=== PATIENT | female | born 1975 | race Caucasian/White ===

== ENCOUNTER 2017-06-02 07:53 | Inpatient (IN) | payer BC ==
[2017-06-02] MEDS: Dextrose 5%-Lactated Ringers 1,000 ML IV SCH ×2 (08:55→15:51)
[2017-06-02] MEDS ORDERED: Glycopyrrolate 0.2 MG/ML 2 ML SDV IVPUSH ONE (09:15)
[2017-06-02] MEDS ORDERED: fentaNYL 100 MCG/2 ML SDV ONE (10:27)
[2017-06-02] MEDS ORDERED: Propofol 200 MG/20 ML SDV ONE ×2 (10:27→11:51)
[2017-06-02] MEDS ORDERED: Midazolam 1 MG/ML 2 ML SDV ONE (10:27)
[2017-06-02] MEDS ORDERED: LORazepam 2 MG/ML MDV IVPUSH PRN (15:11)
[2017-06-02] MEDS ORDERED: LORazepam 0.5 MG Tab PO PRN (15:12)
[2017-06-02] MEDS ORDERED: Acetaminophen 325 MG Tab PO PRN (15:45)
[2017-06-03] MEDS: Zolpidem 5 MG Tab PO PRN ×2 (01:18→01:19)
[2017-06-03] MEDS: Dextrose 5%-Lactated Ringers 1,000 ML IV SCH ×2 (03:21→19:07)
[2017-06-03] MEDS ORDERED: Glycopyrrolate 0.2 MG/ML 5 ML MDV ONE (08:11)
[2017-06-03] MEDS ORDERED: Ondansetron 4 MG/2 ML SDV ONE (08:11)
[2017-06-03] MEDS ORDERED: Succinylcholine 200 MG/10 ML MDV ONE (08:11)
[2017-06-03] MEDS ORDERED: Dexamethasone 4 MG/ML SDV ONE (08:11)
[2017-06-03] MEDS ORDERED: Neostigmine Methylsulfate 1 MG/ML 5 ML Syringe ONE (08:11)
[2017-06-03] MEDS ORDERED: Rocuronium 50 MG/5 ML Vial ONE (08:11)
[2017-06-03] MEDS ORDERED: Propofol 200 MG/20 ML SDV ONE (08:11)
[2017-06-03] MEDS ORDERED: Sodium Chloride 0.9% 10 ML ONE ×2 (08:14→13:30)
[2017-06-03] MEDS ORDERED: Meropenem 500 MG SDV ONE (08:40)
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
--- NOTE | 2017-06-03 08:55 | PCM.HP ---
H&P History of Present Illness - General Date of Service: 06/03/17 Admit Problem/Dx: Admission Diagnosis/Problem Admission Diagnosis/Problem Mass of colon Source of Information: Patient History Limitations: Reports: No Limitations - History of Present Illness Initial Comments - Free Text/Narative: Regine was admitted after she had a colonoscopy for an abnormal frequent drop in ferritin. Colonoscopy revealed a mass in her cecum. She is prepped for a Right Colectomy today Onset of Symptoms: Reports: Gradual - Related Data Allergies/Adverse Reactions: Allergies Allergy/AdvReac Type Severity Reaction Status Date / Time ciprofloxacin Allergy Severe Difficulty Verified 06/02/17 08:46 Breathing iron [From Venofer] Allergy Severe Difficulty Verified 06/02/17 08:46 Breathing hydromorphone [From Dilaudid] AdvReac Nausea and Verified 06/02/17 08:46 Vomiting Home Medications: Home Meds Cyanocobalamin (Vitamin B-12) [Cyanocobalamin Injection] 1 ml IM Q14D 05/15/15 [ History] Cyanocobalamin (Vitamin B-12) [Vitamin B-12] 1,000 mcg SL DAILY 05/15/15 [ History] Iron,Carbonyl/Ascorbic Acid [Vitron-C Tablet] 1 tab PO BID 05/15/15 [History] Pediatric Multivit Comb No.28 [Child Multivitamins] 1 tab PO BID 05/15/15 [ History] Vitamin B Complex 100 NO.2 [Balanced B-100] 100 mg PO DAILY 07/22/16 [History] Zolpidem [Ambien] 5 mg PO BEDTIME 08/06/16 [History] Ergocalciferol (Vitamin D2) [Vitamin D2] 50,000 units PO ASDIRECTED 05/31/17 [ History] Past Medical History HEENT History: Reports: Impaired Vision Other HEENT History: wears contacts Cardiovascular History: Reports: Other (See Below) Other Cardiovascular History: tachycardia after picc line Gastrointestinal History: Reports: Chronic Constipation, Colon Polyp, Hemorrhoids SHOE REPAIRER History: Reports: Polycystic Ovaries, Other OB/BYN History: "ovarian drilling" Musculoskeletal History: Reports: Back Pain, Chronic Other Musculoskeletal History: L1 Fracture Neurological History: Reports: Headaches, Chronic, Migraines Psychiatric History: Reports: Anxiety, Bipolar, Depression, Panic Attack, PTSD Endocrine/Metabolic History: Reports: Obesity/BMI 30+ Hematologic History: Reports: Anemia, B12 Deficiency, Blood Transfusion(s), Iron Deficiency Other Hematologic History: arr with anemia - Infectious Disease History Infectious Disease History: Reports: Chicken Pox - Past Surgical History HEENT Surgical History: Reports: Detached Retina Cardiovascular Surgical History: Reports: None GI Surgical History: Reports: Bariatric Procedure, Cholecystectomy, Colonoscopy , EGD, Hernia, Abdominal, Lysis of Adhesions Endocrine Surgical History: Reports: None Dermatological Surgical History: Reports: None Social & Family History - Family History Family Medical History: Noncontributory Cardiac: Reports: Hypertension Endocrine/Metabolic: Reports: Diabetes, type II Oncologic: Reports: Lung, Pancreatic, Thyroid - Tobacco Use Smoking Status *Q: Never Smoker Second Hand Smoke Exposure: No - Caffeine Use Caffeine Use: Reports: Soda, Tea - Recreational Drug Use Recreational Drug Use: No H&P Review of Systems - Review of Systems: Review Of Systems: See Below General: Reports: Fatigue HEENT: Reports: No Symptoms Pulmonary: Reports: No Symptoms Cardiovascular: Reports: No Symptoms Gastrointestinal: Reports: Abdominal Pain (in her right upper trocar site and right lower trocar site. ), Bloody Stool Genitourinary: Reports: No Symptoms Musculoskeletal: Reports: No Symptoms Skin: Reports: No Symptoms Psychiatric: Reports: No Symptoms Neurological: Reports: No Symptoms Hematologic/Lymphatic: Reports: Anemia Immunologic: Reports: No Symptoms Exam - Exam Exam: See Below - Vital Signs Vital Signs: Last Vital Signs Temp 98.1 F 06/03/17 03:00 Pulse 67 06/03/17 03:00 Resp 12 06/03/17 03:00 BP 112/58 L 06/03/17 03:00 Pulse Ox 99 06/03/17 03:00 Weight: 160 lb - Exam Quality Assessment: DVT Prophylaxis General: Alert, Oriented, Cooperative HEENT: PERRLA, Conjunctiva Clear Neck: Supple, Trachea Midline Lungs: Clear to Auscultation, Normal Respiratory Effort Cardiovascular: Regular Rate, Regular Rhythm GI/Abdominal Exam: Normal Bowel Sounds, Non-Tender (Female) Exam: Deferred Rectal (Female) Exam: Deferred Back Exam: Normal Inspection Extremities: Normal Inspection, Normal Range of Motion, No Pedal Edema Skin: Warm, Dry, Intact Neurological: Cranial Nerves Intact, Reflexes Equal Bilateral Neuro Extensive - Mental Status: Alert, Oriented x3, Normal Mood/Affect, Memory Intact, Other (emotional which is to be expected.) Neuro Extensive - Motor, Sensory, Reflexes: CN II-XII Intact Psychiatric: Alert - Patient Data Lab Results Last 24 hrs: Laboratory Results - last 24 hr 06/02/17 06/02/17 06/02/17 Range/Units 13:35 13:35 13:35 WBC 4.0 L (4.5-11.0) K/uL RBC 3.95 (3.30-5.50) M/uL Hgb 11.6 L (12.0-15.0) g/dL Hct 35.3 L (36.0-48.0) % MCV 89 (80-98) fL MCH 29 (27-31) pg MCHC 33 (32-36) % Plt Count 278 (150-400) K/uL Sodium 141 (140-148) mmol/L Potassium 3.5 L (3.6-5.2) mmol/L Chloride 108 (100-108) mmol/L Carbon Dioxide 25 (21-32) mmol/L Anion Gap 11.5 (5.0-14.0) mmol/L BUN 6 L (7-18) mg/dL Creatinine 0.6 (0.6-1.0) mg/dL Est Cr Clr Drug Dosing 98.58 mL/min Estimated GFR (MDRD) > 60 (>60) Glucose 96 (74-106) mg/dL Calcium 8.2 L (8.5-10.1) mg/dL Phosphorus 2.6 (2.5-4.9) mg/dL Magnesium 1.9 (1.8-2.4) mg/dL Ferritin (8-388) ng/ml Total Bilirubin 0.4 (0.2-1.0) mg/dL AST 17 (15-37) U/L ALT 20 (12-78) U/L Alkaline Phosphatase 57 (46-116) U/L Total Protein 6.8 (6.4-8.2) g/dL Albumin 3.4 (3.4-5.0) g/dL Globulin 3.4 (2.3-3.5) g/dL Albumin/Globulin Ratio 1.0 L (1.2-2.2) Vitamin B12 (193-986) pg/ml Blood Type Gel Antibody Screen 06/02/17 06/02/17 Range/Units 13:35 13:35 WBC (4.5-11.0) K/uL RBC (3.30-5.50) M/uL Hgb (12.0-15.0) g/dL Hct (36.0-48.0) % MCV (80-98) fL MCH (27-31) pg MCHC (32-36) % Plt Count (150-400) K/uL Sodium (140-148) mmol/L Potassium (3.6-5.2) mmol/L Chloride (100-108) mmol/L Carbon Dioxide (21-32) mmol/L Anion Gap (5.0-14.0) mmol/L BUN (7-18) mg/dL Creatinine (0.6-1.0) mg/dL Est Cr Clr Drug Dosing mL/min Estimated GFR (MDRD) (>60) Glucose (74-106) mg/dL Calcium (8.5-10.1) mg/dL Phosphorus (2.5-4.9) mg/dL Magnesium (1.8-2.4) mg/dL Ferritin 46 (8-388) ng/ml Total Bilirubin (0.2-1.0) mg/dL AST (15-37) U/L ALT (12-78) U/L Alkaline Phosphatase (46-116) U/L Total Protein (6.4-8.2) g/dL Albumin (3.4-5.0) g/dL Globulin (2.3-3.5) g/dL Albumin/Globulin Ratio (1.2-2.2) Vitamin B12 268 (193-986) pg/ml Blood Type A NEGATIVE Gel Antibody Screen Negative Result Diagrams: 06/02/17 13:35 06/02/17 13:35 *Q Meaningful Use (ADM) - VTE *Q VTE Criteria *Q: - Stroke *Q Stroke Criteria *Q: - AMI *Q AMI Criteria *Q: Problem List Initiated/Reviewed/Updated: Yes Orders Last 24hrs: Active Orders 24 hr Category Date Time Status Patient Status [ADT] Routine ADT 06/02/17 15:40 Active Ambulate [RC] QID Care 06/02/17 16:33 Active Intake and Output [RC] QSHIFT Care 06/02/17 16:51 Active Oxygen Therapy [RC] PRN Care 06/02/17 16:33 Active RT Incentive Spirometry [RC] ASDIRECTED Care 06/02/17 16:57 Active Up to Chair [RC] QID Care 06/02/17 16:33 Active VTE/DVT Education [RC] Per Unit Routine Care 06/02/17 16:33 Active Verify Patient Consent Obtain [RC] ASDIRECTED Care 06/02/17 16:53 Active Vital Signs [RC] Q4H Care 06/02/17 16:33 Active Clear Liquid Diet [DIET] Diet 06/02/17 Dinner Active Nothing per Oral After Midnight Diet [DIET] Diet 06/03/17 Breakfast Active CEA [REF] Routine Lab 06/02/17 13:35 Received FREDDIE TEST [RM] Routine Lab 06/02/17 11:44 Received Acetaminophen [Tylenol] Med 06/02/17 15:45 Active 650 mg PO Q4H PRN Dextrose 5%-Lactated Ringers 1,000 ml Med 06/02/17 08:30 Active IV ASDIRECTED LORazepam [Ativan] Med 06/02/17 15:11 Active 0.5 - 1 mg IVPUSH Q3H PRN LORazepam [Ativan] Med 06/02/17 15:12 Active 0.5 - 1 mg PO Q3H PRN Naloxone [Narcan] Med 06/03/17 09:30 Active 0.1 mg IVPUSH Q5M PRN Zolpidem [Ambien] Med 06/02/17 20:20 Active 10 mg PO BEDTIME PRN cefOXitin [Mefoxin] 2 gm Med 06/03/17 11:00 Active Sodium Chloride 0.9% [Normal Saline] 50 ml IV ONCALL fentaNYL [Sublimaze] 2,500 mcg Med 06/03/17 09:30 Active Sodium Chloride 0.9% [Normal Saline] 200 ml EPIDUR TITRATE SCD [Sequential Compression Device] [OM.PC] Routine Oth 06/02/17 22:22 Ordered Resuscitation Status Routine Resus Stat 06/02/17 16:33 Ordered Medication Orders Acetaminophen (Tylenol) 650 mg PO Q4H PRN PRN Reason: Headache Last Admin: 06/02/17 15:50 Dose: 650 mg Dextrose/Lactated Ringer's (Dextrose 5%-Lactated Ringers) 1,000 mls @ 100 mls/ hr IV ASDIRECTED OTF Last Admin: 06/03/17 03:21 Dose: 100 mls/hr Infusion: 06/03/17 01:51 Dose: 100 mls/hr Admin: 06/02/17 15:51 Dose: 100 mls/hr Infusion: 06/02/17 15:51 Dose: 100 mls/hr Admin: 06/02/17 08:55 Dose: 100 mls/hr Cefoxitin Sodium 2 gm/ Sodium (Chloride) 50 mls @ 100 mls/hr IV ONCALL ONE Stop: 06/03/17 11:29 Last Admin: 06/03/17 08:28 Dose: 100 mls/hr Fentanyl 2,500 mcg/ Sodium (Chloride) 250 mls @ 0 mls/hr EPIDUR TITRATE OTF; Titrate PRN Reason: Protocol Lorazepam (Ativan) 0.5 - 1 mg IVPUSH Q3H PRN PRN Reason: Anxiety Last Admin: 06/03/17 08:27 Dose: 1 mg Lorazepam (Ativan) 0.5 - 1 mg PO Q3H PRN PRN Reason: Anxiety Naloxone HCl (Narcan) 0.1 mg IVPUSH Q5M PRN PRN Reason: RESP RATE LESS THAN 6/MINUTE Zolpidem Tartrate (Ambien) 10 mg PO BEDTIME PRN PRN Reason: Insomnia Last Admin: 06/03/17 01:19 Dose: 5 mg Assessment/Plan Comment:: Assessment: Cecal Mass Plan: Orders to be written post operatively Xuan Edwards 06/03/17
[2017-06-03] MEDS ORDERED: Naloxone 0.4 MG/ML SDV IVPUSH PRN (09:30)
[2017-06-03] MEDS ORDERED: cefOXitin 2 GM in Sodium Chloride 0.9% 50 ML IV ONE (11:00)
[2017-06-03] MEDS ORDERED: Scopolamine 1.5 MG Transdermal Patch ONE (14:32)
[2017-06-03] MEDS ORDERED: Naloxone 0.4 MG/ML SDV IV PRN (15:17)
[2017-06-03] MEDS ORDERED: diphenhydrAMINE 50 MG/ML SDV IVPUSH PRN (15:17)
[2017-06-03] MEDS ORDERED: Meperidine PF 75 MG/ML Syringe IM PRN (15:18)
[2017-06-03] MEDS: fentaNYL 2,500 MCG in Sodium Chloride 0.9% 200 ML EPIDUR SCH (15:30)
[2017-06-03] MEDS: diphenhydrAMINE 50 MG/ML SDV IVPUSH PRN ×2 (15:32→21:48)
[2017-06-03] MEDS: Pantoprazole 40 MG Vial IV SCH (15:39)
[2017-06-03] MEDS: cefOXitin 2 GM in Sodium Chloride 0.9% 50 ML IV SCH ×2 (15:40→21:48)
[2017-06-03] MEDS: hydrOXYzine HCl 25 MG Tab PO PRN (17:19)
[2017-06-03] MEDS: Ondansetron 4 MG/2 ML SDV IVPUSH PRN (17:19)
[2017-06-03] MEDS: Acetaminophen 1,000 MG in Premix Bag 1 BAG IV SCH (21:20)
[2017-06-04] MEDS: Dextrose 5%-Lactated Ringers 1,000 ML IV SCH ×4 (00:30→21:57)
[2017-06-04] MEDS ORDERED: Lactated Ringers 500 ML IV SCH ×2 (02:30→07:00)
[2017-06-04] MEDS: hydrOXYzine HCl 25 MG Tab PO PRN (03:57)
[2017-06-04] MEDS: Pantoprazole 40 MG Vial IV SCH ×2 (04:00→16:42)
[2017-06-04] MEDS: Acetaminophen 1,000 MG in Premix Bag 1 BAG IV SCH ×2 (04:05→09:42)
[2017-06-04] MEDS: cefOXitin 2 GM in Sodium Chloride 0.9% 50 ML IV SCH ×2 (04:26→09:42)
[2017-06-04] MEDS ORDERED: Enoxaparin 40 MG/0.4 ML Syringe SUBCUT SCH (09:00)
[2017-06-04] MEDS: fentaNYL 2,500 MCG in Sodium Chloride 0.9% 200 ML EPIDUR SCH (09:20)
[2017-06-04] MEDS: Sennosides 8.6 MG Tab PO SCH (09:43)
[2017-06-04] MEDS: traMADol 50 MG Tab PO SCH ×3 (09:43→21:54)
[2017-06-04] MEDS: Bisacodyl 5 MG Tab PO SCH ×2 (09:43→21:54)
[2017-06-04] MEDS: Ibuprofen 600 MG Tab PO SCH ×3 (09:43→21:55)
[2017-06-04] MEDS: Acetaminophen 325 MG Tab PO SCH ×2 (16:42→21:54)
[2017-06-04] MEDS: SCOPOLAMINE PATCH CHECK TOP SCH (16:43)
[2017-06-04] MEDS: diphenhydrAMINE 50 MG/ML SDV IVPUSH PRN (18:33)
[2017-06-04] MEDS: Ondansetron 4 MG/2 ML SDV IVPUSH PRN (22:01)
[2017-06-05] MEDS: Pantoprazole 40 MG Vial IV SCH ×2 (04:08→16:04)
[2017-06-05] MEDS: Acetaminophen 325 MG Tab PO SCH ×5 (04:08→21:08)
[2017-06-05] MEDS: Ondansetron 4 MG/2 ML SDV IVPUSH PRN ×2 (04:17→10:32)
[2017-06-05] MEDS: diphenhydrAMINE 50 MG/ML SDV IVPUSH PRN (04:35)
[2017-06-05] MEDS: fentaNYL 2,500 MCG in Sodium Chloride 0.9% 200 ML EPIDUR SCH (04:47)
[2017-06-05] MEDS ORDERED: Lactated Ringers 500 ML IV SCH (05:00)
[2017-06-05] MEDS: Ibuprofen 600 MG Tab PO SCH ×4 (05:03→21:07)
[2017-06-05] MEDS: traMADol 50 MG Tab PO SCH ×4 (05:08→21:14)
[2017-06-05] MEDS ORDERED: Bupivacaine 0.5% 50 ML MDV ONE (07:21)
[2017-06-05] MEDS ORDERED: Lidocaine 1% with EPINEPHrine 1:100,000 50 ML MDV ONE (07:21)
[2017-06-05] MEDS ORDERED: Meropenem 500 MG SDV ONE (07:21)
[2017-06-05] MEDS ORDERED: Propofol 200 MG/20 ML SDV ONE (07:55)
[2017-06-05] MEDS ORDERED: Midazolam 1 MG/ML 2 ML SDV ONE (07:55)
[2017-06-05] MEDS ORDERED: Sodium Chloride 0.9% 500 ML ONE (07:56)
[2017-06-05] MEDS ORDERED: Ondansetron 4 MG/2 ML SDV ONE (07:58)
[2017-06-05] MEDS ORDERED: Metoclopramide 10 MG/2 ML SDV IVPUSH ONE (11:02)
[2017-06-05] MEDS: SCOPOLAMINE PATCH CHECK TOP SCH (11:04)
[2017-06-05] MEDS: Bisacodyl 5 MG Tab PO SCH ×2 (11:20→21:10)
[2017-06-05] MEDS: Sennosides 8.6 MG Tab PO SCH (11:21)
[2017-06-05] MEDS ORDERED: Meperidine PF 25 MG/ML Syringe IVPUSH PRN (13:12)
[2017-06-05] MEDS: Metoclopramide 10 MG/2 ML SDV IVPUSH SCH ×2 (16:04→21:10)
[2017-06-05] MEDS: Dextrose 5%-Lactated Ringers 1,000 ML IV SCH ×2 (18:10→18:36)
[2017-06-06] MEDS: Dextrose 5%-Lactated Ringers 1,000 ML IV SCH (04:10)
[2017-06-06] MEDS: Metoclopramide 10 MG/2 ML SDV IVPUSH SCH (04:12)
[2017-06-06] MEDS: Pantoprazole 40 MG Vial IV SCH (04:12)
[2017-06-06] MEDS: Acetaminophen 325 MG Tab PO SCH ×4 (04:18→21:44)
[2017-06-06] MEDS: traMADol 50 MG Tab PO SCH ×4 (05:40→21:43)
[2017-06-06] MEDS: Ibuprofen 600 MG Tab PO SCH ×4 (05:41→21:42)
--- NOTE | 2017-06-06 08:27 | PN ---
DATE OF SERVICE: 06/04/2017 SUBJECTIVE: Regine is postop day 1. She is sitting up in the chair. Vital signs have been stable. Her pain has been controlled, temp max 100.6. Urinary output has been marginal. She was given a bolus of lactated Ringer's last evening and it was repeated again this morning. NICKI has put out 275 mL of a light red drainage. Remainder of review of systems negative for any pertinent positives and negatives. OBJECTIVE: GENERAL: Regine Pacheco is a pleasant 42-year-old female. VITAL SIGNS: TPR is 100.6, 70, 18, blood pressure 93/49. O2 sats by pulse oximetry is 94%. HEENT: Negative. NECK: Supple. HEART: Regular rate and rhythm. LUNGS: Clear. ABDOMEN: Dressings are dry and intact. Abdominal binder is on. EXTREMITIES: Without peripheral edema. 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 Surgeon, Jairo Zimmerman MD. PLAN: 1. Orders were previously written. She is to decrease IV at noon to 100 mL per hour if oral intake is adequate. Check CBC and CMP in a.m. She is already scheduled for delayed primary closure of open abdominal incision, IV sedation, Jairo Zimmerman MD on 06/05/2017, to be n.p.o. after midnight. 2. Good pulmonary toilet encouraged. 3. We will evaluate p.r.n. or in a.m. Xuan Hinds PA-C /[id number]
[2017-06-06] MEDS ORDERED: Scopolamine 1.5 MG Transdermal Patch TOP SCH (09:00)
--- NOTE | 2017-06-06 09:42 | PN ---
DATE OF SERVICE: 06/06/2017 SUBJECTIVE: Regine had a delayed primary closure yesterday. She had several bowel movements during in the night. Vital signs have been stable. Her temp max was 98.9. Oral intake was 1,050 and urine output was 1,300. NICKI drain #1 has put out 40 mL of a light pink serous drainage and midline NICKI drain has put out 7 mL. REVIEW OF SYSTEMS: Remainder of review of systems negative for any pertinent positives and negatives. OBJECTIVE: GENERAL: Regine Pacheco is a pleasant 42-year-old female. VITAL SIGNS: TPR is 98.8, 68, 16, blood pressure 93/46. HEENT: Negative. NECK: Supple. HEART: Regular rate and rhythm. LUNGS: Clear. ABDOMEN: Dressings dry and intact. Aquacel is on. NICKI drains x2 intact. EXTREMITIES: Without peripheral edema. ASSESSMENT: 1. Delayed primary closure for open abdominal incision on 06/05/2017. 2. 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 Date of surgery is 06/03/2017. Jairo Zimmerman M.D. 3. Upper GI with biopsies and colonoscopy with biopsy of cecal tumor, injection of Sheila ink in submucosal adjacent to the cecal mass. 4. Iron deficiency anemia associated with normal upper GI. 5. Gastric bypass surgery and possible carcinoma cecum and smaller adjacent polyp, date of procedure 06/02/2017. PLAN: 1. Discontinue Entereg. 2. Reglan 10 mg p.o. q.6 hours p.r.n. nausea. 3. Discontinue IV Reglan. 4. Good pulmonary toilet encouraged. 5. Dressing off, may shower but leaving Aquacel on. 6. We will re-evaluate p.r.n. or in a.m. 7. Plan to discharge in a.m. Xuan Hinds PA-C /[id number]
[2017-06-06] MEDS: SCOPOLAMINE PATCH CHECK TOP SCH (09:52)
[2017-06-06] MEDS: Bisacodyl 5 MG Tab PO SCH ×2 (09:53→20:27)
[2017-06-06] MEDS: Sennosides 8.6 MG Tab PO SCH (09:53)
--- NOTE | 2017-06-06 10:09 | PN ---
DATE OF SERVICE: 06/05/2017 The patient has been afebrile with stable vital signs. Pain control has been satisfactory with the epidural catheter, and she was started on Tylenol, ibuprofen, and tramadol. Her oral intake was fairly good yesterday. Plan will be to proceed with a delayed primary closure today and I will discontinue the epidural catheter. given the manipulation of the epidural space and probably start a Step-4 gastric bypass diet. We will remove the drain within the peritoneal cavity and she will likely have a NICKI drain in the subcutaneous tissue postoperatively. Jairo Zimmerman MD /[id number]
--- NOTE | 2017-06-06 12:18 | OR ---
DATE OF PROCEDURE: 06/05/2017 PREOPERATIVE DIAGNOSIS: Open abdominal incision. POSTOPERATIVE DIAGNOSIS: Open abdominal incision. OPERATIVE PROCEDURE: Delayed primary closure of open abdominal incision. ANESTHESIA: IV sedation. INDICATION FOR PROCEDURE: This is a 42-year-old status post extended right colectomy 48 hours ago with skin and subcutaneous tissue, was felt to be high risk for wound infection, able to close primarily, therefore the wound was packed open for a planned delayed primary closure at this time. Potential risks of the procedure including bleeding and infection were reviewed, and the patient wishes to proceed. DETAILS OF PROCEDURE: The patient was taken to the operating room, placed in a supine position, sitting up somewhat to minimize aspiration risk. The patient received IV sedation and the dressing was taken down and the incision was inspected, it was found to be clean. It was then prepped and draped, anesthetized with 1% lidocaine mixed with Marcaine and irrigated with meropenem-containing saline solution. A 10-Telugu round Joaquin-Gutierrez drain was then placed through the stab wound inferior to the incision and the incision was then closed with 3-0 and 4-0 Vicryl stitch deep and channing for the skin. The drain was fixed with 3-0 Vicryl stitch as well. The patient was taken to the recovery room in satisfactory condition. Jairo Zimmerman MD /[id number]
[2017-06-06] MEDS: Metoclopramide 10 MG Tab PO PRN ×2 (12:41→20:30)
[2017-06-06] MEDS: Pantoprazole 40 MG Tab.CR PO SCH (15:40)
[2017-06-07] MEDS: Acetaminophen 325 MG Tab PO SCH ×2 (03:01→10:31)
[2017-06-07] MEDS: hydrOXYzine HCl 100 MG/2 ML SDV IM PRN (06:00)
[2017-06-07] MEDS ORDERED: Lidocaine 2% Viscous Solution 15 ML Cup PO PRN (06:54)
[2017-06-07] MEDS ORDERED: Ondansetron 4 MG Tab.DIS PO PRN (06:59)
[2017-06-07] MEDS: traMADol 50 MG Tab PO SCH ×2 (07:09→10:31)
[2017-06-07] MEDS: Ibuprofen 600 MG Tab PO SCH (07:10)
--- NOTE | 2017-06-07 07:56 | PN ---
DATE OF SERVICE: 06/07/2017 SUBJECTIVE: Regine reports severe epigastric pain. Mouth is dry, and she states that nothing tastes good. When she tries to eat, she gets very nauseated. Oral intake was 570 yesterday. Urine output was 400. Breakfast 0%, lunch 25%, and dinner nothing was recorded. Two bowel movements and besides the 400 mLs, she had 2 voids. REVIEW OF SYSTEMS: Remainder of review of systems negative for any pertinent positives and negatives. OBJECTIVE: GENERAL: Regine Pacheco is a pleasant 42-year-old female. VITAL SIGNS: TPR is 98.7, 75, 16, and blood pressure 114/56. HEENT: Negative. NECK: Supple. HEART: Regular rate and rhythm. LUNGS: Clear. ABDOMEN: Dressing dry and intact. Abdominal binder is on. NICKI drain put out 40 mL. Midline NICKI put out 7 mL of a light pink serous drainage. EXTREMITIES: SCDs are on. ASSESSMENT: 1. New midepigastric abdominal pain. 2. Delayed primary closure for open abdominal incision on 06/05/2017. 3. 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 Date of surgery, 06/03/2017; Jairo Zimmerman MD. 4. Upper GI with biopsies and colonoscopy with biopsy of cecal tumor, injection of Sheila ink to submucosa adjacent to the cecal mass. 5. Iron deficiency anemia associated with normal upper GI. 6. Status post Taco-en-Y gastric bypass surgery. PLAN: 1. Discontinue scopolamine patch. 2. Discontinue Reglan due to extensive mouth dryness. 3. Rx Zofran ODT 4 mg q.4 hours p.r.n. nausea. 4. Discontinue Motrin. 5. Viscous lidocaine 15 to 30 mL every 2 hours p.r.n. burning in esophagus. 6. Good pulmonary toilet encouraged. 7. We will evaluate p.r.n. or in a.m. Xuan Hinds PA-C /[id number]
[2017-06-07] MEDS: Pantoprazole 40 MG Tab.CR PO SCH (08:00)
[2017-06-07] MEDS: Sennosides 8.6 MG Tab PO SCH (10:27)
[2017-06-07] MEDS: Bisacodyl 5 MG Tab PO SCH (10:27)
[2017-06-07] MEDS: Metoclopramide 10 MG/2 ML SDV IVPUSH SCH ×2 (14:19→20:10)
[2017-06-07] MEDS: Dextrose 5%-Lactated Ringers 1,000 ML IV SCH ×2 (14:20→22:41)
--- NOTE | 2017-06-07 14:21 | CR ---
Abdomen 2V AP Flat Upright INDICATION: nausea and vomiting COMPARISON: Nothing recent. FINDINGS: 3 views. There is free air under the right hemidiaphragm or possibly a small amount under the left hemidiaphra gm on the upright view. Multiple dilated air-filled loops of small bowel with associated air-fluid levels throughout the abdo men. Surgical change in the abdomen. Surgical drain and skin channing. IMPRESSION: 1. Free intraperitoneal air. Given time from surgery, air leak is suspected. 2. Partial small bowel obstruction. Again, ileus also possible though degree of small bowel dilatatio n is concerning. Discussed with Xuan Hinds PA-C on 06/07/2017 at [address]10 hours. Plan is for CT follow-up.
[2017-06-07] MEDS ORDERED: Iopamidol 612 MG/ML 100 ML Bottle IV PRN (14:56)
[2017-06-07] MEDS ORDERED: Sodium Chloride 0.9% 100 ML IV SCH (15:00)
[2017-06-07] MEDS ORDERED: HYDROmorphone 1 MG/ML Syringe IVPUSH PRN (15:23)
--- NOTE | 2017-06-07 15:25 | CT ---
Abdomen Pelvis w Cont INDICATION: Suspect bowel obstruction TECHNIQUE: CT images of the abdomen and pelvis performed. Coronal reformatted images obtained. IV contrast only. DLP: 1098 mGycm COMPARISON: 07/15/2016 FINDINGS: Moderate amount of free air under the right hemidiaphragm. Tiny amount free air under th e left hemidiaphragm. Small bilateral pleural effusions, left greater than right. Gastric bypass surg mickey. Excluded stomach is fluid-filled but not significantly dilated. Small gastric pouch not excluded nor is the jejunal loop dilated proximally; however, multiple loops of dilated small bowel with asso ciated air-fluid levels throughout the abdomen. Anastomotic changes at the distal jejunal loop throu ghout with minimal wall thickening but no signs of obstruction at this point. Patient is near total colectomy. Remaining rectosigmoid colon fluid-filled and mildly dilated. Scattered ascites fluid in a ll 4 quadrants. No evidence of abscess formation. Fatty infiltration liver. Spleen, pancreas, adrenal glands, and kidneys unremarkable. Skin channing anterior abdominal wall midline. IMPRESSION: 1. Free air and ascites. This may be postoperative in nature, though leak not excluded. 2. Small bowel ileus versus obstruction. A discrete obstructing point is not seen. 3. Gastric bypass surgery. No distention at the proximal anastomoses.
[2017-06-07] MEDS: Ondansetron 4 MG/2 ML SDV IVPUSH PRN (16:25)
[2017-06-07] MEDS: Pantoprazole 40 MG Vial IVPUSH SCH (16:25)
[2017-06-07] MEDS: Meperidine PF 25 MG/ML Syringe IVPUSH PRN (21:32)
[2017-06-08] MEDS: hydrOXYzine HCl 100 MG/2 ML SDV IM PRN (02:00)
[2017-06-08] MEDS: Meperidine PF 25 MG/ML Syringe IVPUSH PRN ×2 (02:04→04:57)
[2017-06-08] MEDS: Ondansetron 4 MG/2 ML SDV IVPUSH PRN ×2 (02:07→14:34)
[2017-06-08] MEDS: Metoclopramide 10 MG/2 ML SDV IVPUSH SCH ×4 (02:09→20:24)
[2017-06-08] MEDS ORDERED: Naloxone 0.4 MG/ML SDV IV PRN (06:46)
[2017-06-08] MEDS ORDERED: Meperidine 300 MG/30 ML PCA Vial IV PRN (06:46)
[2017-06-08] MEDS: Pantoprazole 40 MG Vial IVPUSH SCH ×2 (08:19→15:39)
[2017-06-08] MEDS ORDERED: Furosemide 20 MG/2 ML VIAL IVPUSH ONE (08:30)
--- NOTE | 2017-06-08 09:12 | PN ---
DATE OF SERVICE: 06/08/2017 SUBJECTIVE: Regine developed an ileus yesterday. She did have 2 bowel movements in the past 12 hours. She has been n.p.o. Temp max of 99.9. REVIEW OF SYSTEMS: Remainder of review of systems negative for any pertinent positives and negatives. OBJECTIVE: GENERAL: Regine Pacheco is a 42-year-old female. VITAL SIGNS: TPR is 99.9, 82, 18, and blood pressure 110/60. HEENT: Negative. NECK: Supple. HEART: Regular rate and rhythm. LUNGS: Clear. ABDOMEN: Negative. Less distended. Incision looks good. EXTREMITIES: Revealed peripheral edema. ASSESSMENT: 1. Postoperative ileus. 2. Delayed primary closure for open incision on 06/05/2017. 3. 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 Date of surgery, 06/03/2017; Jairo Zimmerman MD. 4. Upper GI with biopsies and colonoscopy with biopsies of cecal tumor, injection of Sheila ink to submucosa adjacent to the cecal mass. 5. Iron deficiency anemia associated with normal upper GI. 6. Status post Taco-en-Y gastric bypass surgery. PLAN: 1. Check CBC, CMP, mag, phos, and ferritin. 2. Restart peripheral IV. 3. Decrease IV rate of D5LR to 100 mL per hour. 4. Lasix 10 mg IV. 5. Fentanyl patch 12 mcg, replace every 72 hours. 6. Start Demerol DIRECTOR OF FLIGHT OPERATIONS. 7. We will evaluate p.r.n. or in a.m. Xuan Hinds PA-C /[id number]
--- NOTE | 2017-06-08 09:15 | CR ---
Abdomen 2V AP Flat Upright INDICATION: small bowel obs COMPARISON: 06/07/2017 FINDINGS: 2 views. Slight decrease in free air under the right hemidiaphragm. Slight increase in small bowel distention and associated air-fluid levels, consistent with continuing small bowel obstruction. Excreted IV contrast in the urinary bladder. Skin channing and surgical drain remain in place. Small l eft pleural effusion.
[2017-06-08] MEDS: fentaNYL 12 MCG/HR Transdermal Patch TRDERM SCH (10:11)
[2017-06-08] MEDS: FENTANYL PATCH CHECK TOP SCH ×2 (10:12→22:24)
[2017-06-08] MEDS: Nystatin Susp 100,000 Unit/ML 5 ML UD Cup PO SCH ×3 (13:43→22:23)
[2017-06-08] MEDS: Dextrose 5%-Lactated Ringers 1,000 ML IV SCH (17:30)
[2017-06-09] MEDS: Metoclopramide 10 MG/2 ML SDV IVPUSH SCH ×4 (02:11→19:34)
[2017-06-09] MEDS: Dextrose 5%-Lactated Ringers 1,000 ML IV SCH ×2 (03:34→23:22)
[2017-06-09] MEDS: Nystatin Susp 100,000 Unit/ML 5 ML UD Cup PO SCH ×4 (05:58→21:39)
[2017-06-09] MEDS ORDERED: Potassium Phosphates 3 mMole/ML 5 ML SDV IV ONE (06:00)
[2017-06-09] MEDS ORDERED: Potassium Phosphates 30 MMOLE in Sodium Chloride 0.9% 500 ML IV SCH (06:00)
[2017-06-09] MEDS: Acetaminophen 325 MG Tab PO PRN ×2 (07:46→19:33)
[2017-06-09] MEDS ORDERED: Ketorolac 60 MG/2 ML SDV IM ONE (08:00)
--- NOTE | 2017-06-09 08:18 | PN ---
DATE OF SERVICE: 06/09/2017 SUBJECTIVE: Regine did have some clear liquid yesterday for a total of 520 mL with total of 3 bowel movements, less nausea and she is having less pain with exception of headache. Temperature max of 100.6. She is up ambulating. REVIEW OF SYSTEMS: Remainder of review of systems negative for any pertinent positives and negatives. OBJECTIVE: GENERAL: Regine Pacheco is a pleasant 42-year-old female. VITAL SIGNS: TPR is 100.5, 86, 18, blood pressure is 101/53. HEENT: Negative. NECK: Supple. HEART: Regular rate and rhythm. LUNGS: Clear. ABDOMEN: Mendoza intact. Abdominal binder has been on. EXTREMITIES: Without peripheral edema. ASSESSMENT: 1. Postoperative ileus, resolved. 2. Delayed primary closure for open incision on 06/05/2017. 3. 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 Date of surgery 06/03/2017, Jairo Zimmerman MD. 4. Upper gastrointestinal with biopsies and colonoscopy with biopsies of cecal tumor, injection of Sheila ink to submucosa adjacent to cecal mass. 5. Iron deficiency anemia associated with normal upper GI. 6. Status post Taco-en-Y gastric bypass surgery. 7. Chronic anemia. PLAN: 1. Full liquid diet. 2. Tylenol 650 mg q.4 hours p.r.n. pain. 3. Toradol 60 mg IM one time to be given for headache. 4. Good pulmonary toilet encouraged. 5. We will evaluate p.r.n. or in a.m. 6. Jairo Zimmerman MD gave report of pathology results to Reginepatricia Hinds PA-C /[id number]
[2017-06-09] MEDS: Potassium Phosphates 25 MMOLE in Sodium Chloride 0.9% 250 ML IV SCH ×3 (08:51→16:17)
[2017-06-09] MEDS: Pantoprazole 40 MG Vial IVPUSH SCH ×2 (08:51→16:17)
[2017-06-09] MEDS: FENTANYL PATCH CHECK TOP SCH ×2 (08:53→21:17)
[2017-06-09] MEDS ORDERED: Magnesium Sulfate/Water 2 GM in Premix Bag 1 BAG IV SCH (10:00)
--- NOTE | 2017-06-09 11:17 | CR ---
Abdomen 2V AP Flat Upright INDICATION: small bowel obs COMPARISON: None FINDINGS: 2 views. Slight decrease free air. Partial resolution of ileus versus small bowel obstruct ion. Air-filled dilated small bowel loops and air-fluid levels persist, however. Skin channing and cuate gical drain remain.
[2017-06-09] MEDS: Ondansetron 4 MG/2 ML SDV IVPUSH PRN (11:23)
[2017-06-09] MEDS ORDERED: Potassium Phosphates 15 MMOLE in Sodium Chloride 0.9% 250 ML IV ONE (22:00)
[2017-06-10] MEDS: Metoclopramide 10 MG/2 ML SDV IVPUSH SCH ×4 (02:55→20:14)
[2017-06-10] MEDS: Ondansetron 4 MG/2 ML SDV IVPUSH PRN ×2 (04:16→11:28)
[2017-06-10] MEDS: Nystatin Susp 100,000 Unit/ML 5 ML UD Cup PO SCH ×4 (05:41→21:05)
[2017-06-10] MEDS ORDERED: Bupivacaine 0.5% 50 ML MDV ONE (07:48)
[2017-06-10] MEDS ORDERED: Lidocaine 1% with EPINEPHrine 1:100,000 50 ML MDV ONE (07:48)
[2017-06-10] MEDS ORDERED: Propofol 200 MG/20 ML SDV ONE ×2 (07:55→09:12)
[2017-06-10] MEDS ORDERED: fentaNYL 100 MCG/2 ML SDV ONE (07:55)
[2017-06-10] MEDS ORDERED: Midazolam 1 MG/ML 2 ML SDV ONE (07:55)
--- NOTE | 2017-06-10 08:09 | PN ---
DATE OF SERVICE: 06/10/2017 SUBJECTIVE: Regine had temperatures of 101.9, 99, and 97. Bowel movements yesterday have been loose. She has had a total of 4. Reports some burning in her midabdominal area. Otherwise, she has no other concerns or questions. REVIEW OF SYSTEMS: Remainder of review of systems is negative for any pertinent positives and negatives. OBJECTIVE: GENERAL: Regine Pacheco is a 42-year-old female, emotional. VITAL SIGNS: TPR is 97.9, 84, 18. Blood pressure 113/74. HEENT: Negative. NECK: Supple. HEART: Regular rate and rhythm. LUNGS: Clear. ABDOMEN: Dressings dry and intact. NICKI has put out 2 mL of a light pink serosanguineous drainage. It is a midline Aquacel that is remained on. EXTREMITIES: SCDs are on. There is trace peripheral edema. ASSESSMENT: 1. Postoperative ileus, resolved. 2. Delayed primary closure for open incision on 06/05/2017. 3. 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 Date of surgery was 06/03/2017, Jairo Zimmerman MD. 4. Upper gastrointestinal with biopsies and colonoscopy with biopsies of the cecal tumor, injection of Sheila ink to submucosa adjacent to cecal mass. 5. Iron-deficiency anemia associated with normal upper GI. 6. Status post Taco-en-Y gastric bypass surgery. 7. Chronic anemia. PLAN: Remain n.p.o. for placement of port today. Check CBC, CMP, and phosphorous in a.m. She has an Oncology appointment with Dr. Clifton in [place], 06/27/2017. Orders to be written post port placement. Xuan Hinds PA-C /[id number]
[2017-06-10] MEDS: Pantoprazole 40 MG Vial IVPUSH SCH ×2 (08:14→15:49)
[2017-06-10] MEDS ORDERED: Linezolid 600 MG in Premix Bag 1 BAG IV ONE (08:30)
--- NOTE | 2017-06-10 09:01 | CR ---
Abdomen 2V AP Flat Upright INDICATION: small bowel obs COMPARISON: Exam previous day FINDINGS: 2 views. Minimal decrease free air under the right hemidiaphragm. Slight increase in diste nded small bowel gas pattern with associated air-fluid levels, consistent with persistent partial sma ll bowel obstruction. Recommend continued follow-up.
[2017-06-10] MEDS: FENTANYL PATCH CHECK TOP SCH ×2 (10:21→20:19)
[2017-06-10] MEDS: Dextrose 5%-Lactated Ringers 1,000 ML IV SCH ×2 (10:37→20:56)
[2017-06-10] MEDS: Acetaminophen/oxyCODONE 325-5 MG Tab PO PRN ×3 (13:27→21:04)
--- NOTE | 2017-06-10 14:39 | OR ---
DATE OF PROCEDURE: 06/02/2017 PREOPERATIVE DIAGNOSIS: Iron deficiency anemia. POSTOPERATIVE DIAGNOSES: Iron deficiency anemia associated with; 1. Normal upper gastrointestinal endoscopy status post Taco-en-Y gastric bypass. 2. Probable carcinoma involving the cecum with adjacent smaller cecal polyp. OPERATIVE PROCEDURES: 1. Upper gastrointestinal endoscopy with biopsies of antrum for CLOtest (708406). 2. Flexible colonoscopy;. a. Biopsies of cecal mass (90483). b. Injection of Sheila ink into submucosa adjacent to cecal mass (63896). ANESTHESIA: IV sedation. INDICATION FOR PROCEDURE: This is a 42-year-old presenting with ongoing iron deficiency anemia. She is referred from her produce runner in [place] for consideration of upper and lower endoscopy. Potential risks of procedure including bleeding and perforation were discussed, and the patient wishes to proceed. DETAILS OF PROCEDURE: The patient was taken to the operating room and placed in a left lateral decubitus position. IV sedation was administered, after which the upper GI endoscope was passed orally through the length of the esophagus into the gastric pouch, from there through the gastrojejunostomy roughly 20 cm into the Taco limb. This exam at this point was entirely normal. Biopsies were obtained from the gastric pouch and sent for CLOtest to establish patient's H. pylori status. Attention was then taken to the colonoscopy. Digital rectal exam was performed. It was unremarkable. Scope was then passed into the rectum with retroflexion revealing uncomplicated hemorrhoidal columns. The scope was then eventually passed to the cecum. The proximal colon was unremarkable. As one approached the area of the ascending colon, there was a scant amount of blood was present and small polyp was noted in the cecum. Going slightly beyond that more or less in the area of the ileocecal valve, there was an obvious malignant-appearing mass present with some blood on its surface consistent with a probable carcinoma at that level. Biopsy was obtained from that area. The polyp was not removed. This would be included in the upcoming right colectomy to confirm without the location intraoperatively and 3 mL of indigo was injected into the submucosa adjacent to the cecal mass. At that point, no further problems noted. The scope was withdrawn. No additional pathology was seen. The procedure concluded. The patient was taken to the recovery room in satisfactory condition. Jairo Zimmerman MD /[id number]
[2017-06-10] MEDS: Magnesium Sulfate/Water 2 GM in Premix Bag 1 BAG IV SCH (21:05)
[2017-06-11] MEDS: Magnesium Sulfate/Water 2 GM in Premix Bag 1 BAG IV SCH ×2 (03:19→11:03)
[2017-06-11] MEDS: Metoclopramide 10 MG/2 ML SDV IVPUSH SCH ×2 (03:19→12:04)
[2017-06-11 07:23] VITALS: BP 108/56
[2017-06-11] MEDS: Pantoprazole 40 MG Vial IVPUSH SCH (09:37)
[2017-06-11] MEDS: fentaNYL 12 MCG/HR Transdermal Patch TRDERM SCH (09:43)
[2017-06-11] MEDS: FENTANYL PATCH CHECK TOP SCH (09:44)
[2017-06-11] MEDS: Nystatin Susp 100,000 Unit/ML 5 ML UD Cup PO SCH ×2 (09:45→11:01)
[2017-06-11] MEDS ORDERED: Potassium Phosphates 20 MMOLE, Lidocaine 1% 2 ML in Sodium Chloride 0.9% 150 ML IV SCH (10:00)
[2017-06-11] MEDS ORDERED: Potassium Chloride 10 MEQ Cap.ER PO SCH (10:00)
[2017-06-11] MEDS ORDERED: Metoclopramide 10 MG Tab PO SCH (10:00)
--- NOTE | 2017-06-12 09:42 | PN ---
DATE OF SERVICE: 06/11/2017 The patient had a T-max of 100.4. Vital signs are otherwise stable. Clinically, she has continued to move her bowels. Oral intake was around 1200 mL yesterday. We will saline lock the IV, switch over to oral Reglan today. She may be ready for discharge home tomorrow. Potassium remains somewhat low, and we will supplement that with some IV K-Phos today along with oral KCl. We will recheck some labs again tomorrow prior to discharge. Jairo Zimmerman MD /[id number]
--- NOTE | 2017-06-12 11:42 | OR ---
DATE OF PROCEDURE: 06/03/2017 PREOPERATIVE DIAGNOSIS: Cecal carcinoma. POSTOPERATIVE DIAGNOSES: 1. Cecal carcinoma. 2. Extensive adhesions and sclerotic changes to transverse and splenic flexure colon. 3. Umbilical hernia. OPERATIVE PROCEDURES: Exploratory laparotomy with; 1. Subtotal colectomy with ileorectal anastomosis (62149). 2. Repair of incarcerated umbilical hernia (20713). 3. Placement of Vicryl mesh to displace the pelvic and abdominal vallejo from small bowel and other viscera (99050). ANESTHESIA: General. ENVIRONMENTAL SERVICE AIDE: Xuan Hinds PA-C, and SUKI Engel. INDICATION FOR PROCEDURE: This is a 42-year-old presenting with some ongoing iron deficiency anemia. At the time of endoscopy yesterday, she was noted to have what appeared to be a cecal carcinoma along with a possible small polyp adjacent to that in the cecum or ascending colon. The plan is to proceed with an exploratory laparotomy with right colectomy. Potential risks of the procedure including bleeding, infection, injury to underlying viscera, leaks from various GI tract closures, as well as possibility of cardiopulmonary, septic, or hemorrhagic complications leading to were discussed, as well as the possibility of tumor recurrence and need for additional treatment were likewise gone over, and the patient wishes to proceed. DETAILS OF PROCEDURE: The patient was taken to the operating room and placed in a supine position. After general endotracheal anesthesia was induced, a Sarah catheter was inserted, and the abdomen was prepped and draped. An upper midline incision was initially used. This was eventually extended roughly a handsbreadths below the umbilicus. A midline incision was used in the anticipation that given the patient's multiple polyps in the past, at an early age, that she may need additional colon surgery on the left side in the future. After the full thickness, the abdomen was entered. General exploration was undertaken. The patient was noted to have the cecal mass. This was mobile with regard to other surrounding soft tissues, i.e. there was no fixation of the abdominal wall or other adjacent structures. There was some lymphadenopathy along the ileocolic lymphatic chain. One of these was roughly the size of a grape and was fairly white and hard, quite suggestive of metastatic disease. There was no lymphadenopathy proximal to the ileocolic chain, i.e. along the main course of the superior mesenteric artery and vein, and there was no additional lymphadenopathy. There was no evidence of peritoneal seeding or ascites and no evidence of liver or additional visceral metastases. It was notable, on subsequent dissection in the area of the transverse colon, this area was quite sclerotic, and this may be related to the Taco limb having been passed over it. This was also associated with quite a bit in the way of adhesions and sclerotic changes of the splenic flexure. Given this, eventually, we ended up with a subtotal colectomy with left colic distribution of the colon also being excised resulting in what would be an anastomosis at the junction of the sigmoid colon and upper rectum. Once the above findings were identified, the peritoneal reflexion of the distal small bowel and right colon were divided. This allowed medial mobilization of those structures. The transverse colon was also then from the omentum and reflected medially. With the above findings, regarding the transverse colon and splenic flexure being identified, those areas were likewise freed up from the surrounding soft tissues. A decision was made to proceed with the resection of the remainder of the transverse colon and splenic flexure. This essentially eliminated the left colic vessel distribution, so the colon was divided more or less flush with the uppermost rectum. With a TYLER purple load, the distal small bowel was then divided likewise with a TYLER fontana load, a few centimeters proximal to the ileocecal valve to provide some margin away from the tumor at that location as well as some wider mesenteric excision. Once these 2 areas of bowel were divided, the ureters on each side were confirmed to be intact and duodenum noted to be uncompromised on the right side. A careful mesenteric excision was then accomplished in the ileocolic vessel, along the ileocolic vessels down the level where it came off the end of the main course of the superior mesenteric artery and vein. This was all accomplished with TYLER, mesentery vascular attachments. The right colic vessel was then also divided and flush with the superior mesenteric artery and vein with the TYLER staplers as well. The remainder of the vasculature to the bowel to be excised were divided with a TYLER vascular and mesenteric loads, and the specimen then delivered from the field. The patient had GI tract continuity then established with a [id number] anastomosis between the end of the small bowel and the uppermost rectum, with 2 internal firings of the TYLER fontana load, and the common opening then closed transversely with the purple load. The angles anastomosed and mesenteric defect were then approximated with some 3-0 Vicryl stitch and that anastomosis was reinforced with some fibrin sealant. The patient was noted to have an incarcerated umbilical hernia containing some nonreducible preperitoneal fat along with the tip of the falciform ligament as it entered that area. The area was then incised and the tissue reduced. This hernia was then repaired at the time of the primary closure. The abdomen was then irrigated with antibiotic-containing saline solution. Two Joaquin- Gutierrez drains were placed, one on each side of the abdomen, and taken along the colic gutters on each side and from there into the pelvis to limit adhesion formation between the small bowel, pelvic, and abdominal wall. 12-inch segments of Vicryl mesh was placed across both structures. Following this, the midline fascia was then approximated with a #2 Vicryl stitch. The skin and subcutaneous tissue were felt to be at high risk for wound infection should they be closed. Given this, these were packed open with Iodoform gauze for a planned delayed primary closure in 48 hours. The patient was taken to the recovery room in a satisfactory condition. Physician construction management assistant, Xuan Hinds, played an essential role in assisting in this case, helping to position the patient, retract structures as needed, as well as suturing and cutting sutures when indicated. Her presence improved patient safety and decreased the operative time. Jairo Zimmerman MD /[id number]
--- NOTE | 2017-06-13 10:34 | CR ---
Abdomen 2V AP Flat Upright HISTORY: Small bowel obstruction. COMPARISON: 06/10/2017. FINDINGS: There remains dilated small bowel loops throughout the abdomen. This may be slightly more p rominent than the prior study on today's second image. No free air seen. Small amount of free air und erneath the right left hemidiaphragm. Impression: Distal small bowel obstructive process. Free air is presumably postoperative. This does appear to hav e decreased from prior film 06/09/2017.
--- NOTE | 2017-06-15 14:31 | OR ---
DATE OF PROCEDURE: 06/10/2017 PREOPERATIVE DIAGNOSIS: Indication for central venous access. POSTOPERATIVE DIAGNOSIS: Indication for central venous access. OPERATIVE PROCEDURE: Insertion of Bard port via left subclavian vein approach (45142). ANESTHESIA: Local plus IV sedation. CONCRETE ANALYST: GABINO Engel INDICATION FOR PROCEDURE: This is a 42-year-old female recently presenting with ongoing anemia and underwent a colonoscopy showing cecal carcinoma. At the time of resection, final pathology revealed 9 positive lymph nodes. The patient, at this point, is anticipating chemotherapy and wished to have the port placed. The potential risks of the procedure including bleeding, infection, pneumohemothorax, problems with the port becoming infected or occluded were all reviewed, and the patient wishes to proceed. DETAILS OF PROCEDURE: The patient was taken to the operating room and placed in a supine position. After IV sedation was administered, the upper chest and neck areas were prepped and draped. The subclavian area was anesthetized with 1% lidocaine mixed with Marcaine and left subclavian vein cannulated. A guidewire was passed. Some additional local was then injected and a transverse infraclavicular incision was made and carried down through the skin and subcutaneous tissue and pectoralis major fascia. A port space posterior to the pectoralis major fascia was then created bluntly. The Bard PowerPort was then assembled and flushed with heparinized saline. The port was placed into the pocket, and the catheter cut such that the tip would lie in the upper right atrium over the introducer and peel-away catheter. The Bard port catheter was then placed under fluoroscopic surveillance with good final positioning in the upper right atrium. The incision was then closed with some 3-0 and 4-0 Vicryl stitch deep along with a 4-0 Vicryl subcuticular stitch. The port was once again aspirated and flushed confirming good flow in both directions. At that point, it was flushed with heparinized saline. The patient was taken to the recovery room in a satisfactory condition. Jairo Zimmerman MD /[id number]
--- NOTE | 2017-08-03 15:56 | DISCH ---
FINAL DIAGNOSES: 1. 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 2. Extensive adhesions and sclerotic changes at transverse and splenic flexure of colon. 3. Umbilical hernia. 4. Bariatric surgery status. 5. Iron deficiency anemia. 6. History of Polycystic ovary syndrome. OPERATIVE PROCEDURES: 1. On 06/02/2017; upper GI endoscopy with;. a. Biopsies of antrum for CLOtest. b. Possible colonoscopy with biopsies of cecal mass and injection of Sheila ink into the submucosa adjacent to the cecal mass, on 06/03/2017. 2. Exploratory laparotomy with;. a. Subtotal colectomy with ileorectal anastomosis. b. Repair of incarcerated umbilical hernia. c. Placement of Vicryl mesh to displace pelvic and abdominal wall from small bowel and other viscera. On 06/05/2017, the patient had a delayed primary closure of abdominal incision and then on 06/10/2017, insertion of Bard port via left subclavian vein approach. HOSPITAL COURSE: This is a 42-year-old presenting with some ongoing iron-deficiency. In the past, she has had colon polyps identified. At the time of admission, the patient underwent an upper endoscopy, which showed only some mild gastritis, but on colonoscopy, was noted to have a cecal mass consistent with a carcinoma. Biopsies of this were obtained and the patient, after discussion, wished to proceed with a resection that was done on the next day. At that time, she was noted to have some grossly evident metastatic disease and regional lymph nodes, but otherwise all identifiable disease was resected. She also, probably related to the Taco limb passing in that area, had quite a bit of cirrhosis in the area of the transverse colon and splenic flexure, and this necessitated more or less a subtotal colectomy with an anastomosis into the upper rectum. The patient had a delayed primary closure of the abdominal incision on 06/05/2017 with the pathology confirming the regional lymph node metastasis. It was given that the patient would be requiring chemotherapy, she wished to have a port placed prior to discharge, which was done on 06/10/2017. She will be following up with Medical Oncology in [place] and/or program. She is also interested in perhaps getting a consultation with one of the [facility], most likely one in the [place] region. Otherwise, we will see her back in one week for recheck. Medications on discharge include [place] and otherwise is to continue her usual medications. Follow with Xuan Hinds and Dr. Zimmerman in roughly one week.
== END 2017-06-11 14:59 | disposition home or self-care (01) | DRG 221 ==
LOC: JP.MS 07:53 → JP.SDS 07:53 → EDSTATUS 10:30 → JP.2SS 13:00
PROVIDERS: ADMIT Surgery; ATTEND Surgery
DX: C18.0 Malignant neoplasm of cecum (principal); D50.9 Iron deficiency anemia, unspecified; K42.0 Umbilical hernia with obstruction, without gangrene; K66.0 Peritoneal adhesions (postprocedural) (postinfection); K91.2 Postsurgical malabsorption, not elsewhere classified; E53.8 Deficiency of other specified B group vitamins; H54.7 Unspecified visual loss; Z98.84 Bariatric surgery status; Z98.0 Intestinal bypass and anastomosis status; Z88.1 Allergy status to other antibiotic agents; Z88.8 Allergy status to other drugs, medicaments and biological substances; K56.7 Ileus, unspecified; E87.6 Hypokalemia
CPT/HCPCS: 36415; 74020; 74020-26; 74177; 74177-26; 77001; 80053; 82378; 82607; 82728; 83735; 84100; 85027; 86850; 86900; 86901; 87081; 88302; 88305; 88307; 88309; 94762; A9270-GY; C1781; C1788; C9113; J0131; J0330; J0694; J1100; J1170; J1200; J1642; J1650; J1885; J1940; J2020; J2060; J2175; J2185; J2250; J2405; J2704; J2710; J2765; J3010; J3410; J3475; J3490; J7030; J7040; J7042; J7050; Q9967

== ENCOUNTER 2018-09-18 07:49 | Day surgery (SDC) | payer BC ==
[2018-09-18] MEDS ORDERED: Dextrose 5%-Lactated Ringers 1,000 ML IV SCH (08:15)
[2018-09-18] MEDS ORDERED: fentaNYL 100 MCG/2 ML SDV ONE (09:44)
[2018-09-18] MEDS ORDERED: Midazolam 1 MG/ML 2 ML SDV ONE (09:44)
[2018-09-18] MEDS ORDERED: Propofol 200 MG/20 ML SDV ONE (09:44)
[2018-09-18 13:04] VITALS: BP 100/63
--- NOTE | 2018-09-25 12:18 | OR ---
DATE OF PROCEDURE: 09/18/2018 PREOPERATIVE DIAGNOSES: 1. History of colon carcinoma status post extended right colectomy. 2. Frequent loose bowel movements. POSTOPERATIVE DIAGNOSES: 1. History of colon carcinoma status post extended right colectomy. 2. Frequent loose bowel movements. 3. No evidence of malignant recurrence or colitis. OPERATIVE PROCEDURE: Flexible colonoscopy with collection of stool for C and S. ANESTHESIA: IV sedation. INDICATION FOR PROCEDURE: A 43-year-old status post an extended right colectomy in May 2018 for a colon carcinoma. She has completed chemotherapy treatment. She had a CT scan done in June, which showed no signs of recurrence. She is plagued by sense of fullness in the pelvis and need to move her bowels along with some frequent loose bowel movements. Plan to proceed with flexible colonoscopy with biopsies as indicated. Potential risks including bleeding and perforation were discussed, and the patient wishes to proceed. DETAILS OF PROCEDURE: The patient was taken to the operating room and placed in a left lateral decubitus position. IV sedation was administered, after which the initial digital rectal exam was performed and it was unremarkable. Colonoscope was then passed into the rectum with retroflexion revealing uncomplicated hemorrhoidal columns. Scope was then eventually passed to the level of the ileocolic anastomosis. To that level, no further abnormalities were noted. There was no evidence of colitis. No signs of any local recurrence at the anastomotic site. During this procedure, small bowel liquid stool was present which was collected and sent for stool microbiologic workup. The scope was then withdrawn. The above findings were confirmed and the procedure concluded. There were no other complications. The patient will be advised that she can take agents such as Imodium to try to slow down the bowels at this point. We will contract her should the microbiologic workup be problematic at all. Jairo Zimmerman MD /[id number]
== END 2018-09-18 11:25 | disposition home or self-care (01) ==
LOC: JP.SDS 07:49
PROVIDERS: ATTEND Surgery
DX: R19.7 Diarrhea, unspecified (principal); K64.9 Unspecified hemorrhoids; Z85.038 Personal history of other malignant neoplasm of large intestine; Z92.21 Personal history of antineoplastic chemotherapy; Z90.49 Acquired absence of other specified parts of digestive tract
CPT/HCPCS: 87046; 87177; 87209; 87493; 87899; C1751; J1642; J2250; J2704; J3010; J7042

== ENCOUNTER 2019-06-29 09:58 | Day surgery (SDC) | payer BC ==
[2019-06-29] MEDS ORDERED: Cyanocobalamin (Vitamin B12) 1,000 MCG/ML SDV IM ONE (10:30)
[2019-06-29] MEDS ORDERED: Lactated Ringers 1,000 ML IV ONE (10:30)
[2019-06-29] MEDS ORDERED: Glycopyrrolate 0.2 MG/ML 2 ML SDV IVPUSH ONE (11:00)
[2019-06-29] MEDS ORDERED: MVI, Adult with Vitamin K 10 ML, Thiamine 200 MG, Chromium/Copper/Mang/Selen/Zn 1 ML in... IV ONE ×4 (11:30)
[2019-06-29] MEDS ORDERED: Propofol 200 MG/20 ML SDV ONE (11:57)
[2019-06-29] MEDS ORDERED: Midazolam 1 MG/ML 2 ML SDV ONE (11:58)
[2019-06-29] MEDS ORDERED: fentaNYL 100 MCG/2 ML SDV ONE (11:58)
[2019-06-29 13:42] VITALS: BP 107/67; PULSE 77
--- NOTE | 2019-07-02 11:13 | OR ---
DATE OF PROCEDURE: 06/29/2019 SURGEON: Jairo Zimmerman MD PREOPERATIVE DIAGNOSES: 1. Upper abdominal discomfort, status post Taco-en-Y gastric bypass. 2. History of right colonic carcinoma. POSTOPERATIVE DIAGNOSES: 1. Normal appearing upper GI endoscopy status post Taco-en-Y gastric bypass. 2. Normal colonoscopy, status post right colectomy. OPERATIVE PROCEDURES: 1. Upper GI endoscopy. 2. Flexible colonoscopy. ANESTHESIA: IV sedation. INDICATIONS FOR PROCEDURE: This is a 44-year-old, status post Taco-en-Y gastric bypass, as well as a right colectomy for a stage III colon carcinoma. She is now roughly a year and a half status post last chemotherapy with no known recurrence of the colon carcinoma. She complains of some fairly ill-defined upper abdominal discomfort. Plan is to proceed with upper endoscopy for evaluation of those symptoms, as well as colonoscopy for followup of the colon carcinoma. The potential risks of the procedure including bleeding and perforation were discussed, and the patient wishes to proceed. DETAILS OF PROCEDURE: The patient was taken to the operating room and placed in a left lateral decubitus position. IV sedation was administered, after which the upper GI endoscope was passed orally through the length of the esophagus into the gastric pouch and from there through the gastrojejunostomy roughly 20 cm into the Taco limb. Overall, the findings were entirely normal on this examination. There were no areas of significant inflammation or stricturing. No bile reflux was noted within the Taco limb. Overall, the upper GI endoscopic exam was entirely normal. Scope was then withdrawn, and the procedure was then concluded. The patient was then taken to the colonoscopy. Initial digital rectal exam was performed and was unremarkable. Colonoscope was passed into the rectum with retroflexion revealing uncomplicated hemorrhoidal columns. The scope was eventually passed to the level of the ileocolic anastomosis, and from there roughly 20 cm into the small bowel, the prep was fairly good with there only being a small amount of liquid stool present. To that level, no abnormalities were noted and there was no evidence of any colitis or diverticular disease, and specifically there were no areas of polypoid disease or evident recurrent tumor in the area of the ileocolic anastomosis. Scope was then withdrawn. The above procedures were completed. The patient was taken to the recovery room in satisfactory condition. We will have the patient follow up with Xuan Hinds for bariatric followup in 3 months. At this point, the upper abdominal discomfort may be related to some adhesions, but nothing is evident on the upper GI endoscopic examination requiring any treatment. We will leave the next colonoscopy timing up to her Oncology providers. She also is low in iron and should be sent out for an iron infusion in [place]. Jairo Zimmerman MD /[id number]
== END 2019-06-29 14:45 | disposition home or self-care (01) ==
LOC: JP.SDS 09:58
PROVIDERS: ATTEND Surgery
DX: R10.10 Upper abdominal pain, unspecified (principal); K64.9 Unspecified hemorrhoids; I50.9 Heart failure, unspecified; Z98.84 Bariatric surgery status; Z90.49 Acquired absence of other specified parts of digestive tract; Z85.038 Personal history of other malignant neoplasm of large intestine
CPT/HCPCS: 43235; 45378; 81025; J1642; J2250; J2704; J3010; J3411; J3420; J3490; J7120